=== PATIENT | female | born 1975 | race Caucasian/White ===

== ENCOUNTER 2022-09-25 22:19 | Emergency (ER) | payer BC ==
[~2022-09-25 22:19] MED LIST: LIDOCAINE PATCH REMOVAL MC SCH
[2022-09-25 22:23] VITALS: BP 121/84; PULSE 65; RESP 18; TEMP 98.1; BMI 26.2
[2022-09-25] MEDS ORDERED: diazePAM 5 MG TABLET PO ONE (23:24)
[2022-09-25] MEDS ORDERED: LIDOCAINE 5% TOPICAL PATCH TP ONE (23:25)
[2022-09-25] MEDS ORDERED: LIDOCAINE 5% TOPICAL PATCH ONE (23:35)
[2022-09-25] MEDS ORDERED: diazePAM 5 MG TABLET ONE (23:35)
[2022-09-25 23:56] LABS: PH,URINE 5.5 (5.0-8.0); URINE APPEARANCE CLEAR; URINE BILIRUBIN NEGATIVE (NEGATIVE); URINE COLOR YELLOW; URINE GLUCOSE (UA) NEGATIVE (NEGATIVE); URINE KETONE NEGATIVE (NEGATIVE); URINE LEUK ESTERASE NEGATIVE (NEGATIVE); URINE NITRITE NEGATIVE (NEGATIVE); URINE PROTEIN NEGATIVE (NEGATIVE); URINE UROBILINOGEN 0.2 mg/dL (0.2-1.0)
[2022-09-25] MEDS ORDERED: IBUPROFEN 400 MG TABLET (FP) PO ONE (23:57)
[2022-09-26] MEDS ORDERED: IBUPROFEN 400 MG TABLET (FP) PO ONE (00:20)
== END 2022-09-26 01:03 | disposition home or self-care (01) ==
LOC: JER 22:19
DX: M54.50 Low back pain, unspecified (principal); R10.30 Lower abdominal pain, unspecified; M79.10 Myalgia, unspecified site
CPT/HCPCS: 81003; 87086; 93005; 93010; 99284-25